=== PATIENT | male | born 1960 | race Caucasian/White ===

== ENCOUNTER 2016-12-19 22:00 | Inpatient (IN) | payer OTHER ==
--- NOTE | ~2016-12-19 | PN ---
Unit #: [id number] #: [id number] Patient: JARET RABAGO [id number] [facility] [address] [place] [address] [id number] I MR#: [id number] NAME: JARET RABAGO ROOM: P121 Age: 56 Sex: M Admission Date: 12/20/2016 : 1960 Attending Physician: Teja Hernández M.D. Admitting Physician: Teja Hernández M.D. Primary Care Physician: Primary Care Physician Caty RAMOS NOTES DATE OF SERVICE 12/22/16 DISCUSSION Jaret Rabago is a 56-year-old male seen on 12/22/16. Patient interviewed, chart reviewed, I obtained information from nursing staff. Patient became very belligerent, aggressive, hostile, aggressive, making racial comments. Patient was threatening, aggressive, needing restraints so patient was given Geodon 20 mg, Ativan 1 mg IM. Patient was extremely hostile, aggressive, threatening. COMPLETE REVIEW OF SYSTEMS Unremarkable. MENTAL STATUS EXAMINATION GENERAL APPEARANCE: Patient tall, well built. ATTENTION SPAN AND CONCENTRATION: Poor. Oriented in place and person. MOOD AND AFFECT: Labile. SPEECH: Rapid. THOUGHT PROCESS: Circumstantial, guarded, paranoid, mood lability, anger, aggression, psychosis. Denied any thoughts of harming self or others, but above-mentioned behavior, threatening behavior. RECENT AND REMOTE MEMORY: Poor. INSIGHT AND JUDGMENT: Poor. DIAGNOSIS Schizophrenia, chronic, paranoid type ASSESSMENT/PLAN Advised to continue with the current medication with the plan to add Latuda starting with 20 mg and increasing it to 80 mg daily. If needed, consider further adjustment in medication. We will continue to follow. Dictated by... Teja Hernández M.D. ASHLEY/sharon TD: 12/23/2016 00:04 JOB #: [id number] Unit #: [id number] #: [id number] Patient: JARET RABAGO NEDRA RAMOS NOTES Page 1 of 1 X Teja Hernández MD PROGRESS NOTE
--- NOTE | ~2016-12-19 | PA ---
Unit #: [id number] #: [id number] Patient: JARET RABAGO [id number] [place] [address] [id number] I MR#: [id number] NAME: JARET RABAGO ROOM: P201 Age: 56 Sex: M Admission Date: 12/20/2016 : 1960 Date of Assessment: Attending Physician: Teja Hernández M.D. Admitting Physician: Teja Hernández M.D. Primary Care Physician: Primary Care Physician No PSYCHIATRIC ASSESSMENT INFORMANT Patient reliability, fair informant; chart reliability, good. CHIEF COMPLAINT Suicidal ideation and hallucination. HISTORY OF PRESENT ILLNESS Mr. Jaret Rabago is a 56-year-old male, presented with the above-mentioned complaint. The patient reported diagnosed with schizophrenia, bipolar mood disorder, reported having suicidal ideation. The patient reports taking medication on Seroquel. The patient has a history of being treated inpatient in [place] for depression, lives with a friend. The patient presented with depression with suicidal ideation with a plan to take overdose of ibuprofen. The patient denied any homicidal ideation. Denied any auditory hallucination, but guarded, paranoid. The patient reported not sleeping well, appetite poor. Denied any use of any drugs or alcohol, but admitted using alcohol a liter. The patient reported one prior suicide attempt. The patient needing inpatient admission at this time for psychiatric stabilization. PAST PSYCHIATRIC HISTORY Remarkable for history of previous treatment in [place] as mentioned above. FAMILY HISTORY AND SOCIAL HISTORY The patient lives with a friend. Poor support system. Unemployed. No known history of legal problem or abuse. Family history is remarkable for history of alcohol problem in father, brother, sister. Mental illness in father. MEDICAL HISTORY Remarkable for COPD and chronic knee pain. Musculoskeletal: Muscle strength and tone, no atrophy or abnormal movement. Gait normal. MEDICATION HISTORY The patient is on; 1. Seroquel 300 mg at bedtime. 2. Ibuprofen 800 mg daily. ALLERGIES No known drug allergies. SUBSTANCE ABUSE HISTORY Unit #: [id number] #: [id number] Patient: JARET RABAGO The patient reported using tobacco, age of onset 4, alcohol; age of onset 3, marijuana; age of onset 16. No history of blackout, HIV, hepatitis, withdrawal symptom, or IV drug abuse. REVIEW OF SYSTEMS HEENT: Eyes, clear. Ears, nose, mouth, and throat; clear. CARDIOVASCULAR: Unremarkable. RESPIRATORY: Unremarkable. GI: Unremarkable. : Unremarkable. SKIN: Unremarkable. LYMPH NODE: Unremarkable. NEUROLOGIC: Unremarkable. ENDOCRINE: Unremarkable. HEMATOLOGIC: Unremarkable. ALLERGIC/IMMUNOLOGIC: Unremarkable. MUSCULOSKELETAL: Muscle strength and tone, no atrophy or abnormal movement. Gait normal. MENTAL STATUS EXAMINATION CONSTITUTIONAL: Measurement of vital signs; 98.1, 89, 20, 102/70, height 6 feet 5 inches, and weight 244 pounds. General appearance; the patient dressed casually. The patient did not show any facial deformity. Musculoskeletal: Please see above. PSYCHIATRIC EXAMINATION Description of speech; regular rate, normal volume. Description of thought process, circumstantial. Description of association, guarded and paranoid. Description of thought content, guarded and paranoid, mood lability, paranoia, suicidal ideation, depression. Description of the patient's judgment, concerning everyday activity, poor. Social situation, poor. Concerning psychiatric condition, poor. Complete mental status examination; oriented in time, place, and person. Recent and remote memory, fair. Attention span and concentration, fair. Language, able to name object and repeat phrases. Fund of knowledge, aware of current event and past history. Vocabulary intact. Mood and affect, sad and dysphoric. Insight and judgment, fair to poor. ASSETS AND LIABILITIES The patient articulate and able to take care of his ADL. Liability, history of depression. ADMITTING DIAGNOSES 1. Psychiatric: Schizophrenia, chronic paranoid type, F20.0. 2. Major depressive disorder, recurrent, severe, F33.2; alcohol use disorder, moderate, F10.20. Secondary diagnoses: Deferred. Medical diagnosis: COPD. Chronic back pain. Stressors: Psychosocial stressor. PSYCHIATRIC PLAN AND TREATMENT GOAL AND DISCHARGE PLAN 1. Advised to admit the patient on the inpatient unit. Provide safe, supportive, and structured environment. 2. Ordered labs; CBC, CMP, UA, and UDS. 3. Precaution for aggression and psychosis. 4. The patient to attend all the programing on the inpatient unit with group therapy, individual therapy, chemical dependency group. Unit #: [id number] #: [id number] Patient: JARET RABAGO 5. Advised to resume the patient's medication, Seroquel 600 mg at bedtime. 6. Plan to consider adding SSRI if needed. Monitor for side effects. TREATMENT GOAL To attain euthymic mood, gain insight into his problem, and learn coping skills. DISCHARGE PLAN Plan to stabilize patient and consider followup in outpatient program. ESTIMATED LENGTH OF STAY 5 days. Dictated by... Adele Taylor/chace TD: 12/20/2016 17:37 JOB #: [id number] PSYCHIATRIC ASSESSMENT Page 1 of 1 X Teja Hernández MD X PSYCHIATRIC ASSESSMENT
--- NOTE | ~2016-12-19 | DS ---
Unit #: [id number] #: [id number] Patient: JARET MUNGUIA [id number] [place] [address] [id number] I MR#: [id number] NAME: JARET MUNGUIA ROOM: [facility] Age: 56 Sex: M Admission Date: 12/20/2016 : 1960 Discharge Date: 12/23/2016 Attending Physician: Teja Hernández M.D. Primary Care Physician: Primary Care Physician No DISCHARGE SUMMARY REASON FOR ADMISSION Paranoia, psychosis. DIAGNOSTIC STUDIES Laboratory data, unremarkable. Urine drug screen positive for benzodiazepines. HOSPITAL COURSE The patient was admitted to inpatient unit, on November 19 and discharged on December 23, 2016. The patient was treated on the inpatient unit with behavior management, medication management, structured milieu. The patient was responsive to treatment and treated with a combination of Latuda and Seroquel. Subsequently, the patient was discharged with the plan to follow up in an outpatient program. DISCHARGE DIAGNOSES Fortine I Schizophrenia, chronic paranoid type, F20.0. Major depressive disorder, recurrent, severe, F33.2. Alcohol use disorder, moderate, F10.20. Fortine II Deferred. Fortine III COPD. Chronic pain. Fortine IV Psychosocial stressors. Fortine V INSTRUCTIONS TO PATIENT The patient is to follow up in outpatient clinic as well as social work msw. DISCHARGE MEDICATIONS 1. Seroquel 600 mg at bedtime for psychosis 2. Latuda 40 mg at bedtime for psychosis CONDITION AT DISCHARGE The patient is pleasant and cooperative, denied any psychotic symptoms, or any suicidal ideation. PROGNOSIS Guarded. DIET AND ACTIVITY Diet and activity as tolerated. Unit #: [id number] #: [id number] Patient: JARET MUNGUIA Dictated by... Adele Taylor/morgan TD: 12/24/2016 11:53 JOB #: [id number] DISCHARGE SUMMARY Page 1 of 1 X Tjea Hernández MD X DISCHARGE SUMMARY
--- NOTE | ~2016-12-19 | CO ---
Unit #: [id number] #: [id number] Patient: JARET MUNGUIA [id number] [place] [address] [id number] I MR#: [id number] NAME: JARET MUNGUIA ROOM: P201 Age: 56 Sex: M Admission Date: 12/20/2016 : 1960 Attending Physician: Teja Hernández M.D. Primary Care Physician: Primary Care Physician No Consultation Date: 12/20/2016 CONSULTATION REPORT HISTORY OF PRESENT ILLNESS Jaret reports that he has a genital rash when he was admitted. He reports that this rash comes and goes and usually it is improved when he showers. Currently, his rash has completely resolved and he declines any physical exam. He does reports of dry skin and would like lotion for his arms. No other complaints. PHYSICAL EXAMINATION CARDIAC: Regular rate and rhythm. No murmurs, gallops, or rubs. RESPIRATORY: Clear to auscultation bilaterally. ASSESSMENT AND PLAN 1. Rash. The patient reports rash has resolved and declines physical exam. If symptoms return, please notify. 2. Dry skin. We will provide Eucerin cream. Dictated by... Keara Rivera A.P.R.N. for Adele Nicole/chace TD: 12/20/2016 22:56 JOB #: [id number] CONSULTATION REPORT Page 1 of 1 X KEARA VARELA APRN X CONSULTATION REPORT
--- NOTE | ~2016-12-19 | PN ---
Unit #: [id number] #: [id number] Patient: JARET MUNGUIA [id number] [facility] [address] [place] [address] [id number] MR#: [id number] NAME: JARET MUNGUIA ROOM: P201 Age: 56 Sex: M Admission Date: 12/20/2016 : 1960 Attending Physician: Teja Hernández M.D. Admitting Physician: Teja Hernández M.D. Primary Care Physician: Primary Care Physician Caty SNEED PROGRESS NOTES DATE 12/21/2016 DISCUSSION Mr. Jaret Munguia is a 56-year-old male seen on 12/21/2016. The patient interviewed, chart reviewed. Obtained information from nursing staff. The patient tolerating medication fairly well currently on Seroquel 600 mg daily no side effects from medication. Continues to be guarded, paranoid. Vital signs 97.6, 71, 103/67. The patient denied any complaints but guarded, paranoid, sad, depressed mood. The patient was appropriate, cooperative, seclusive, isolative. Complete review of systems unremarkable. MENTAL STATUS EXAMINATION General appearance, the patient tall, moderately obese. Attention span and concentration poor. Orientation to self and place. Mood and affect labile. Speech loud. Thought process circumstantial, guarded. The patient reported passive SI denied any plans guarded paranoid. Recent and remote memory poor. Insight and judgement poor. DIAGNOSES 1. Bipolar mood disorder NOS 2. Schizophrenia chronic paranoid type ASSESSMENT/PLAN Advise to continue with current medication with a plan to consider SSRI if needed. Continue with the inpatient programming in the meantime. Dictated by... Adele Taylor/radha TD: 12/22/2016 00:34 JOB #: [id number] Unit #: [id number] #: [id number] Patient: JARET MUNGUIA NEDRA PROGRESS NOTES Page 1 of 1 X Teja Hernández MD PROGRESS NOTE
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
[2016-12-20 09:58] LABS: BASOPHIL# 0.1 X10e3 (0-0.3); EOSINOPHIL# 0.1 X10e3 (0-0.7); EOSINOPHIL% 1.8 % (0.0-7.0); LYMPHOCYTE# 1.7 X10e3 (1.0-3.5); LYMPHOCYTE% 29.6 % (17.0-45.0); MEAN CELL VOLUME 94.9 FL (83-96); MEAN CORPUSCULAR HEMOGLOBIN 31.6 PG (28-34); MEAN CORPUSCULAR HGB CONC 33.3 g/dL (30-36); MEAN PLATELET VOLUME 8.1 FL (6.5-11.5); MONOCYTE# 0.4 X10e3 (0-1.0); MONOCYTE% 6.7 % (3.0-12.0); NEUTROPHIL# 3.6 X10e3 (1.5-7.1); NEUTROPHIL% 60.9 % (40-75); PLATELET COUNT 204 X10e3 (140-420); RED BLOOD COUNT 4.43 X10e (3.90-5.60); RED CELL DISTRIBUTION WIDTH 13.5 % (11.0-15.5); WHITE BLOOD COUNT 5.9 X10e3 (4.0-10.5)
[2016-12-20 10:00] LABS: DIFF IND NO
[2016-12-20 10:02] LABS: ALBUMIN SERUM 4.2 g/dL (3.5-5.0); BILIRUBIN,TOTAL 0.8 mg/dL (0.2-2.0); BUN/CREATININE RATIO 21.25; CALCIUM SERUM 9.2 mg/dL (8.4-10.2); CREATININE SERUM 0.8 mg/dL (0.6-1.4); GLOM FILT RATE Estimated 98.5 mL/min (>60); POTASSIUM 4.1 mmol/L (3.5-5.1); PROTEIN TOTAL SERUM 6.9 g/dL (6.0-8.3)
[2016-12-22 13:10] LABS: URINE APPEARANCE CLEAR; URINE BILIRUBIN NEG (NEG); URINE BLOOD NEG (NEG); URINE COLOR YELLOW; URINE GLUCOSE NEG (NEG); URINE KETONE TRACE (NEG); URINE LEUKOCYTE ESTERASE TRACE (NEG); URINE NITRATE NEG (NEG); URINE PROTEIN NEG (NEG); URINE SPECIFIC GRAVITY 1.029 (1.003-1.035)
[2016-12-22 13:13] LABS: URBCS1 AUWI 0-2 /[HPF] (0-2); URINE BACTERIA AUWI NEG (NEGATIVE); URINE SQUAMOUS EPITHELIAL CELL OCC /[HPF]
[2016-12-22 13:25] LABS: AMPHETAMINE NEG (NEG); BARBITURATES NEG (NEG); BENZODIAZEPINES POS (NEG); COCAINE NEG (NEG); MARIJUANA NEG (NEG); OPIATES NEG (NEG); TRICYCLIC ANTIDEPRESSANTS POS (NEG); U METHADONE NEG (NEG)
== END 2016-12-23 10:40 | disposition home or self-care (01) | DRG 885 ==
LOC: P1E 12-20 03:25 → P2S 12-20 03:25 → P1S 12-22 11:08
PROVIDERS: Psychiatry & Neurology Psychiatry
DX: F20.0 Paranoid schizophrenia (principal); F33.2 Major depressive disorder, recurrent severe without psychotic features; F10.20 Alcohol dependence, uncomplicated; J44.9 Chronic obstructive pulmonary disease, unspecified; G89.29 Other chronic pain; M54.9 Dorsalgia, unspecified; F17.210 Nicotine dependence, cigarettes, uncomplicated; Z88.8 Allergy status to other drugs, medicaments and biological substances; R21 Rash and other nonspecific skin eruption; F31.32 Bipolar disorder, current episode depressed, moderate
CPT/HCPCS: 80053; 80307; 81003; 85025; J0515; J1630; J2060; J3486

== ENCOUNTER 2017-01-06 14:00 | Inpatient (IN) | payer OTHER ==
[~2017-01-06] VITALS: Ht 195.6 cm; Wt 105.7 kg
--- NOTE | ~2017-01-06 | HP ---
Unit #: [id number] #: [id number] Patient: JARET MUNGUIA [id number] [place] [address] [id number] I MR#: [id number] NAME: JARET MUNGUIA ROOM: P130 Age: 56 Sex: M Admission Date: 01/06/2017 : 1960 Attending Physician: Luis Eduardo Merrill M.D. Admitting Physician: Luis Eduardo Merrill M.D. Primary Care Physician: Primary Care Physician No HISTORY AND PHYSICAL HISTORY OF PRESENT ILLNESS The patient is a 56-year-old admitted to [address] [place] [address] with depression and verbalizing wanting to hurt himself. He was recently discharged from this facility. The patient was seen and H and P dated 12/20/2016 was reviewed. This is current. No changes. Please see H and P dated 12/20/2016. Dictated by... Pastora Gonzales P.A.-C. for Adele Nicole/radha TD: 01/08/2017 04:50 JOB #: [id number] HISTORY AND PHYSICAL Page 1 of X Pastora Gonzales HISTORY AND PHYSICAL
--- NOTE | ~2017-01-06 | PN ---
Unit #: [id number] #: [id number] Patient: JARET MUNGUIA [id number] [facility] [address] [place] [address] [id number] I MR#: [id number] NAME: JARET MUNGUIA ROOM: P130 Age: 56 Sex: M Admission Date: 01/06/2017 : 1960 Attending Physician: Luis Eduardo Merrill M.D. Admitting Physician: Luis Eduardo Merrill M.D. Primary Care Physician: Primary Care Physician Caty SNEED PROGRESS NOTES DATE 01/08/2017 DISCUSSION Mr. Munguia is a 56-year-old white male who was seen today and chart was reviewed and case was discussed with the staff. He has been anxious, withdrawn though has not shown any agitation, irritability and has been cooperative with treatment recommendations and has been taking medications and tolerating them fairly well with no reported side effects. MENTAL STATUS EXAMINATION Middle-aged white male who was casually dressed with fair personal hygiene and appears to be in no acute distress or discomfort. He was awake and alert on interaction with intact orientation. His mood was anxious and depressed with congruent affect. His speech is slow and goal-directed. He denies any suicidal or homicidal ideation. He denies any auditory or visual hallucinations. His insight and judgement remains slightly impaired. TREATMENT PLAN 1. Will continue his current medications and treatment protocol and will monitor his response to the medications and make further adjustments as needed. 2. Will continue to follow up. Dictated by... Adele Montero/mani TD: 01/08/2017 17:25 JOB #: [id number] Unit #: [id number] #: [id number] Patient: JARET MUNGUIA NEDRA PROGRESS NOTES Page 1 of 1 X Luis Eduardo Merrill MD PROGRESS NOTE
--- NOTE | ~2017-01-06 | PN ---
Unit #: [id number] #: [id number] Patient: JARET RABAGO [id number] [facility] [address] [place] [address] [id number] I MR#: [id number] NAME: JARET RABAGO ROOM: P130 Age: 56 Sex: M Admission Date: 01/06/2017 : 1960 Attending Physician: Luis Eduardo Merrill M.D. Admitting Physician: Luis Eduardo Merrill M.D. Primary Care Physician: Primary Care Physician Caty SNEED PROGRESS NOTES DATE OF SERVICE 01/10/2017 DISCUSSION Mr. Rabago is a 56-year-old white male with mood disorder and psychosis who was seen today. Chart was reviewed and case was discussed with the staff. He has been anxious, withdrawn, and rather seclusive to himself. Meanwhile, he has been cooperative with the treatment recommendations and has been taking the medications and tolerating them fairly well with no reported side effects. MENTAL STATUS EXAMINATION Middle-aged white male who is casually dressed with fair personal hygiene and appears to be in no acute distress or discomfort. He was awake and alert on interaction with intact orientation. His mood is anxious with a congruent affect. His speech is fluent and tangential. His thought processes were disorganized with some looseness of associations and flight of ideas. His insight and judgment remain significantly impaired. TREATMENT PLAN 1. We will continue him on his current medications and treatment protocol, and we will consider doing discharge planing tomorrow. 2. We will continue to follow up. Dictated by... Luis Eduardo Merrill M.D. IAA/bzg TD: 01/10/2017 11:14 JOB #: [id number] Unit #: [id number] #: [id number] Patient: JARET RABAGO NEDRA PROGRESS NOTES Page 1 of 1 X Luis Eduardo Merrill MD PROGRESS NOTE
--- NOTE | ~2017-01-06 | DS ---
Unit #: [id number] #: [id number] Patient: JARET RABAGO [id number] [facility] [address] [place] [address] [id number] I MR#: [id number] NAME: JARET RABAGO ROOM: P130 Age: 56 Sex: M Admission Date: 01/06/2017 : 1960 Discharge Date: 01/11/2017 Attending Physician: Luis Eduardo Merrill M.D. Primary Care Physician: Primary Care Physician No DISCHARGE SUMMARY IDENTIFYING DATA Mr. Rabago is a 56-year-old white male who is a resident of [place], [place] and was recently discharged from the hospital and self-referred back to the hospital. DISCHARGE DIAGNOSES Psychiatric: Schizoaffective disorder, bipolar type, most recent episode; Depressed, recurrent, moderate with psychosis. Medical: None. Stressors: Moderate psychosocial stressors. HISTORY OF PRESENT ILLNESS Please see initial psychiatric evaluation for details. PAST PSYCHIATRIC HISTORY Please see initial psychiatric evaluation for details. PAST MEDICAL HISTORY Please see initial psychiatric evaluation for details. HOSPITAL COURSE The patient was admitted to the adult psychiatric unit at [facility] [place] and was oriented to the hospital environment. Routine p.r.n. medications were initiated and he was started back on his home medications and medications were adjusted. The patient was once again seen to be very agitated, irritable, loud, aggressive, hostile, and Seroquel was increased and rest of the medications were maintained and he was seen to be doing much better and was able to calm down significantly with no agitation, aggression, and was willing to continue with treatment on an outpatient basis. DISCHARGE MEDICATIONS Seroquel 600 mg at bedtime and Seroquel 100 mg in the morning and afternoon for bipolar. DISCHARGE CONDITION Stable. PROGNOSIS Fair. Dictated by... Luis Eduardo Merrill M.D. Unit #: [id number] #: [id number] Patient: JARET RABAGO IAA/modl TD: 01/12/2017 06:14 JOB #: [id number] DISCHARGE SUMMARY Page 1 of 1 X Luis Eduardo Merrill MD DISCHARGE SUMMARY
--- NOTE | ~2017-01-06 | PA ---
Unit #: [id number] #: [id number] Patient: JARET RABAGO [id number] [facility] [address] [place] [address] [id number] I MR#: [id number] NAME: JARET RABAGO ROOM: P130 Age: 56 Sex: M Admission Date: 01/06/2017 : 1960 Date of Assessment: 01/07/2017 Attending Physician: Luis Eduardo Merrill M.D. Admitting Physician: Luis Eduardo Merrill M.D. Primary Care Physician: Primary Care Physician No PSYCHIATRIC ASSESSMENT DATE OF SERVICE 01/07/2017. IDENTIFYING DATA Mr. Rabago is a 56-year-old, , white male, who is a resident of [place], [place], and was recently active under the care of Dr. Hernández a couple of weeks ago and was discharged and was now transferred back to us from [facility] Emergency Room. CHIEF COMPLAINT "Suicidal thoughts." HISTORY OF PRESENT ILLNESS Mr. Rabago is a 56-year-old white male with a history of mood disorder and psychosis and was transferred to us from [facility] Emergency Room where he presented experiencing suicidal thoughts at this time. He truly wants to kill himself and reported that he looked for a train that he could get on to and that when he found them he could not get on them because they were too high up and reports that he was triggered by where he lives because the person he lives with has cameras everywhere and he does not like and reports that he felt he was being spied on and that he would tell them when he was trying to get food that it was not his and the patient reports that when he lived in [place], he left that house as well because there were cameras. The patient reports that he told the director global strategic publisher sales that he wanted to leave and that she told him that she would throw his things out in the front yard. The patient reports that he has been living at the [facility] and reports that the director global strategic publisher sales consistently questions him because of what she sees on cameras and review of the medical records indicate that the patient was here a couple of weeks ago and was extremely agitated, hostile and verbally abusive and aggressive and threatening and posturing and is really tall and big and has been intimidating and was demanding to leave as well as asking me to let go. As soon as he came on the unit here, he once again has been showing the same behavior as I walked into the unit in the morning around breakfast time today. The patient was pacing the hallways and was yelling and screaming and cursing and calling female staff members really with horrible names and refusing to redirect and banging the doors and slamming the doors and all the male patients were talking about "whooping his ass." He was once again refusing to calm down and calling the female staff names and then he started throwing up ice on the door and started banging the doors and code had to be called and an intramuscular injection of Geodon and Benadryl had to be given to cut down as it appears that he has consistent history of being aggressive, hostile and belligerent, and has Unit #: [id number] #: [id number] Patient: JARET RABAGO apparently been noncompliant with the medication, as such has been decompensating. SUBSTANCE ABUSE HISTORY The patient reports history of alcohol and cannabis abuse. PAST PSYCHIATRIC HISTORY The patient has had a history of inpatient psychiatric hospitalization in [place] as well as at [facility] and review of the medical records indicate that he has been diagnosed and treated for mood disorder and psychosis and is supposed to be on Seroquel, but has been noncompliant with the medication. He also reports that he was on Latuda, but his insurance would not pay that medications. PAST MEDICAL HISTORY COPD. ALLERGIES Toradol. PERSONAL AND SOCIAL HISTORY A 56-year-old white male, who reports that he is and lives in a homeless fpc, but describes himself to be homeless. MENTAL STATUS EXAMINATION Middle-aged white male, who was casually dressed with fair personal hygiene, appears to be in no acute distress or discomfort. He was awake and alert with impaired attention and concentration. His mood was anxious and depressed with a congruent affect. His speech was slow and tangential. His thought processes were disorganized with some looseness of associations and flight of ideas and paranoid ideations and delusional behavior. His insight and judgment remain significantly impaired. DIAGNOSTIC IMPRESSION Psychiatric: Schizoaffective disorder, bipolar type, most recent episode depressed, recurrent, moderate, with psychosis. Medical: None. Stressors: Moderate psychosocial stressors. TREATMENT PLAN 1. The patient has presented with a history of mood disorder and psychosis and has been decompensating and will need inpatient hospitalization for safety and stabilization. We will start him back on his home medications. We will adjust the medications and monitor response. 2. Supportive therapy was provided to the patient. 3. Safe, structured, and nourishing environment will be provided. ESTIMATED LENGTH OF STAY 5 to 7 days. ABILITY TO HELP SELF Limited. WILLINGNESS TO HELP SELF The patient appears to be willing to help self. Unit #: [id number] #: [id number] Patient: JARET RABAGO STRENGTHS 1. Communicative. 2. Cooperative. PROBLEMS 1. Chronic dysphoric symptoms. 2. Poor social support system. DISCHARGE CRITERIA This will be contingent upon the patient's ability to show resolution of his depression and anxiety and his ability to stay safe to himself, particularly after discharge from the hospital. Dictated by... Luis Eduardo Merrill M.D. BELTRAN/chace TD: 01/08/2017 00:50 JOB #: [id number] PSYCHIATRIC ASSESSMENT Page 1 of 1 X Luis Eduardo Merrill MD PSYCHIATRIC ASSESSMENT
--- NOTE | ~2017-01-06 | PN ---
Unit #: [id number] #: [id number] Patient: JARET MUNGUIA [id number] [facility] [address] [place] [address] [id number] MR#: [id number] NAME: JARET MUNGUIA ROOM: P130 Age: 56 Sex: M Admission Date: 01/06/2017 : 1960 Attending Physician: Luis Eduardo Merrill M.D. Admitting Physician: Luis Eduardo Merrill M.D. Primary Care Physician: Primary Care Physician Caty SNEED PROGRESS NOTES DATE 01/09/2017 DISCUSSION Mr. Munguia is a 56-year-old, white male who was seen today and chart was reviewed and case was discussed with the staff. He has been anxious, withdrawn, agitated and irritable though has not shown any aggressive behavior but at the same time he has been pushing to leave the hospital and has it has been a typical pattern of him signing out and then coming right back into the hospital. MENTAL STATUS EXAM Middle-aged white male who was casually dressed with fair personal hygiene, appears to be in no acute distress or discomfort. He was awake and alert with impaired attention and concentration. His mood was anxious with congruent affect. His speech was fluent and tangential. His thought processes were disorganized with some looseness of associations. His insight and judgement remains significantly impaired. TREATMENT PLAN 1. We will continue him on his current treatment protocol. We will encouraging him to show better compliance with treatment. 2. We will continue to follow up. Dictated by... Adele Montero/radha TD: 01/09/2017 21:10 JOB #: [id number] Unit #: [id number] #: [id number] Patient: JARET MUNGUIA NEDRA PROGRESS NOTES Page 1 of 1 X Luis Eduardo Merrill MD PROGRESS NOTE
[2017-01-07 09:56] LABS: BASOPHIL% 0.8 % (0-2.5); EOSINOPHIL# 0.1 X10e3 (0-0.7); EOSINOPHIL% 2.5 % (0.0-7.0); HEMOGLOBIN 13.4 gm/dL (13.0-16.0); LYMPHOCYTE# 1.4 X10e3 (1.0-3.5); LYMPHOCYTE% 33.3 % (17.0-45.0); MEAN CELL VOLUME 94.3 FL (83-96); MEAN CORPUSCULAR HEMOGLOBIN 31.5 PG (28-34); MEAN CORPUSCULAR HGB CONC 33.4 g/dL (30-36); MEAN PLATELET VOLUME 8.2 FL (6.5-11.5); MONOCYTE# 0.3 X10e3 (0-1.0); MONOCYTE% 7.5 % (3.0-12.0); NEUTROPHIL# 2.4 X10e3 (1.5-7.1); NEUTROPHIL% 55.9 % (40-75); PLATELET COUNT 164 X10e3 (140-420); RED BLOOD COUNT 4.24 X10e (3.90-5.60); RED CELL DISTRIBUTION WIDTH 13.4 % (11.0-15.5); WHITE BLOOD COUNT 4.3 X10e3 (4.0-10.5)
[2017-01-07 09:58] LABS: DIFF IND NO
[2017-01-07 10:06] LABS: ALBUMIN SERUM 3.5 g/dL (3.5-5.0); BILIRUBIN,TOTAL 0.3 mg/dL (0.2-2.0); BUN/CREATININE RATIO 16.66; CALCIUM SERUM 8.8 mg/dL (8.4-10.2); CREATININE SERUM 0.9 mg/dL (0.6-1.4); GLOM FILT RATE Estimated 93.8 mL/min (>60); POTASSIUM 4.2 mmol/L (3.5-5.1); PROTEIN TOTAL SERUM 5.9 g/dL (6.0-8.3)
== END 2017-01-11 11:45 | disposition home or self-care (01) | DRG 885 ==
LOC: P1S 22:02 → P2L 22:02 → P1S 01-07 18:30
PROVIDERS: Psychiatry & Neurology Psychiatry
DX: F25.0 Schizoaffective disorder, bipolar type (principal); Z91.14 Patient's other noncompliance with medication regimen; J44.9 Chronic obstructive pulmonary disease, unspecified; Z88.8 Allergy status to other drugs, medicaments and biological substances
CPT/HCPCS: 80053; 85025; J1200; J3486